=== PATIENT | female | born 1965 | race Asian ===

== ENCOUNTER 2020-01-24 12:00 | Day surgery (SDC) | payer MEDICARE, MEDICAID ==
[2020-01-24] VITALS (14 sets, daily range): BP systolic 118–150; BP diastolic 76–98
[~2020-01-24] VITALS: Ht 152.4 cm; Wt 77.1 kg
[~2020-01-24 12:00] MED LIST: ATEN50TA2 PO; CETI10TA14 PO; CITA40TA17 PO; DUPI300S; FLUT16SP2 BOTHNARES; HYDR50TA3 PO; LISI10TA4 PO; LORA10TA7 PO; MELO-100 PO; METF-950 PO; NAPR-1166; PRE5T PO; TRAZ150T78 PO; famotidine 20mg tablet PO ONE; ringers solution, lacted 1,000 ML IV SCH
[2020-01-24] MEDS ORDERED: cefazolin/dext.iso 2gm/50ml 50 ML IV ONE (12:25)
[2020-01-24] MEDS ORDERED: INDOCYANINE GREEN 25 MG/10 ML VIAL IV ONE (12:50)
[2020-01-24 13:48] LABS: BASOPHILS % (AUTO) 0.6 % (0-1); EOSINOPHILS # (AUTO) 0.4 X10'3 (0-0.9); EOSINOPHILS % (AUTO) 5.6 % (0-6); LYMPHOCYTES # (AUTO) 2.4 X10'3 (1.1-4.8); LYMPHOCYTES % (AUTO) 36.9 % (21-51); MEAN CORPUSCULAR HEMOGLOBIN 26.7 PG (27.0-31.0); MEAN CORPUSCULAR HGB CONC 32.8 g/dL (33.0-36.5); MEAN CORPUSCULAR VOLUME 81.5 FL (78-98); MEAN PLATELET VOLUME 6.8 FL (7.4-10.4); MONOCYTES # (AUTO) 0.5 X10'3 (0-0.9); MONOCYTES % (AUTO) 8.1 % (2-12); NEUTROPHILS # (AUTO) 3.2 X10'3 (1.8-7.7); NEUTROPHILS % (AUTO) 48.8 % (42-75); PRE OP HEMATOCRIT 40.2 % (35.0-45.0); PRE OP HEMOGLOBIN 13.2 g/dL (12.0-16.0); PRE OP PLATELET COUNT 274 X10'3 (140-440); RED BLOOD COUNT 4.93 X10'6 (4.20-5.60); RED CELL DISTRIBUTION WIDTH 13.4 % (11.5-14.5)
[2020-01-24] MEDS ORDERED: LIDOcaine 1% 30ml preserv. free vial ONE (13:55)
[2020-01-24] MEDS ORDERED: BUPIVAcaine/PF 2.5 mg/ml (0.25%) 30ml vial ONE (13:55)
[2020-01-24 13:59] LABS: ALBUMIN 4.2 G/DL (3.4-5.0); ALBUMIN/GLOBULIN RATIO 1.1 (1.1-1.5); ALKALINE PHOSPHATASE 63 IU/L (46-116); BLOOD UREA NITROGEN 13 MG/DL (7-18); BUN/CREATININE RATIO 18.3 (6.6-38.0); CALCIUM 9.3 MG/DL (8.5-10.1); CHLORIDE 97 MMOL/L (99-107); CREATININE 0.71 MG/DL (0.40-0.90); PRE OP ALT 42 U/L (30-65); PRE OP ANION GAP 7 (8-16); PRE OP AST 20 U/L (10-37); PRE OP BILIRUB, TOTAL 0.7 MG/DL (0.0-1.0); PRE OP GLUCOSE 156 MG/DL (70-104); PRE OP POTASSIUM 4.1 MMOL/L (3.4-5.1); PRE OP SODIUM 135 MMOL/L (135-145); TOTAL CARBON DIOXIDE 31.5 MMOL/L (24-32); eGFR 86 ML/MIN
[2020-01-24] MEDS ORDERED: atenolol 50mg tablet PO ONE (14:00)
[2020-01-24] MEDS ORDERED: fentaNYL/PF 50MCG/1 ML 2ML syringe ONE (14:33)
[2020-01-24] MEDS ORDERED: midazolam 2 mg/2 ml injection ONE (14:34)
[2020-01-24] MEDS ORDERED: rocuronium 10mg/ml inj IV ONE (14:34)
[2020-01-24] MEDS ORDERED: propofol inj 20 ML IV ONE (14:35)
[2020-01-24] MEDS ORDERED: proCHLORperazine 10 MG/2 ml inj IV PRN (15:25)
[2020-01-24] MEDS ORDERED: morphine 2 MG/ML inj. syringe IV PRN (15:25)
[2020-01-24] MEDS ORDERED: morphine 4 MG/ML inj SYRINge IV PRN (15:25)
[2020-01-24] MEDS ORDERED: ringers solution, lacted 1,000 ML IV SCH (15:25)
[2020-01-24] MEDS ORDERED: ondansetron/PF 4mg/2ml inj IV PRN (15:25)
[2020-01-24] MEDS ORDERED: meperidine/PF 25mg/ml syringe IV PRN ×3 (15:25)
[2020-01-24] MEDS ORDERED: ondansetron/PF 4mg/2ml inj ONE (15:30)
--- NOTE | 2020-01-24 15:51 | NUR ---
Received from OR via [facility], accompanied by Anesthesiologist DR LR and report given by Anesthesiologist. PT DROWSY, NO S/S OF DISTRESS/DISCOMFORT. ABDOMEN W/4 LAP SITES W/BANDAIDS CDI, BS 233, DR LR AWARE NOTIFIED. Addendum: 01/24/20 at 1724 by Shannon Hammond RN Amended: Links added.
[2020-01-24] MEDS ORDERED: HYDROcodone/acetaminophen 10/325mg tab PO PRN (16:00)
[2020-01-24] MEDS ORDERED: HYDROcodone/acetaminophen 5mg/325mg tablet PO PRN (16:00)
--- NOTE | 2020-01-24 18:11 | NUR ---
PT GIVEN NORCO FOR ABDOMINAL PAIN AND FOR RIDE HOME [place], PT STATES PAIN IS TOLERABLE AND DECLINES ANY OTHER INTERVENTIONS AND THAT SHE WANTS TO GET TO THE RX BEFORE THEY CLOSE SHE LIVES OUT OF TOWN. D/C INSTRUCTIONS GIVEN AND GONE OVER W/PT WHO VERBALIZED UNDERSTANDING. PT D/CD TO HOME VIA W/C TO PRIVATE VEHICLE W/O INCIDENT. Addendum: 01/24/20 at 1831 by Shannon Hammond RN Amended: Links added.
== END 2020-01-24 18:11 | disposition home or self-care (01) ==
LOC: PAS 12:00
PROVIDERS: ATTEND Surgery
DX: K80.10 Calculus of gallbladder with chronic cholecystitis without obstruction (principal); E11.9 Type 2 diabetes mellitus without complications; I10 Essential (primary) hypertension; F32.9 Major depressive disorder, single episode, unspecified; M19.90 Unspecified osteoarthritis, unspecified site; E66.9 Obesity, unspecified; Z68.33 Body mass index [BMI] 33.0-33.9, adult; Z85.830 Personal history of malignant neoplasm of bone; Z79.899 Other long term (current) drug therapy; Z98.890 Other specified postprocedural states; Z86.73 Personal history of transient ischemic attack (TIA), and cerebral infarction without residual deficits
CPT/HCPCS: 36415; 47563; 80053; 82948; 85025; 93005; J2001; J2250; J2405; J2704; J3010; J3490; J7120; A4215; A4618; A7000

== ENCOUNTER 2022-01-20 08:12 | Day surgery (SDC) | payer MEDICARE, MEDICAID ==
[~2022-01-20] VITALS: Ht 152.4 cm; Wt 76.3 kg
[~2022-01-20 08:12] MED LIST changes: -HYDR50TA3 PO; +HYDR50TA4 PO; +LISI10TA27 PO; -LISI10TA4 PO; +METF-1203 PO; -METF-950 PO; -famotidine 20mg tablet PO ONE; -ringers solution, lacted 1,000 ML IV SCH
[2022-01-20 08:20] VITALS: BP 156/92
[2022-01-20] MEDS ORDERED: fentaNYL/PF 50MCG/1 ML 2ML syringe ONE (08:20)
[2022-01-20] MEDS ORDERED: MIDAZolam 1 MG/ML 5ML VIAL ONE (08:20)
[2022-01-20] MEDS ORDERED: OMEP20TA43 PO (08:41)
[2022-01-20] MEDS ORDERED: ONDA-103 (08:41)
[2022-01-20] MEDS ORDERED: DULA0.75 SQ (08:41)
[2022-01-20] MEDS ORDERED: CLOT30CR24 (08:41)
[2022-01-20 10:33] VITALS: BP 110/73
[2022-01-20 10:43] VITALS: BP 113/69
[2022-01-20 10:53] VITALS: BP 112/67
== END 2022-01-20 11:15 | disposition home or self-care (01) ==
LOC: GI LAB 08:12
PROVIDERS: ATTEND Internal Medicine Gastroenterology
DX: Z08 Encounter for follow-up examination after completed treatment for malignant neoplasm (principal); D12.5 Benign neoplasm of sigmoid colon; K57.30 Diverticulosis of large intestine without perforation or abscess without bleeding; K64.8 Other hemorrhoids; Z86.010 Personal history of colon polyps
CPT/HCPCS: 45385; G0500; J2250; J3010; J7030; Z7512; 88305; 99152; A4620; C1889